=== PATIENT | male | born 1950 | race Caucasian/White ===

== ENCOUNTER 2018-03-30 06:45 | Day surgery (SDC) | payer OTHER ==
[~2018-03-30 06:45] MED LIST: MOTRIN600 MG PO; NOHOMEMEDS; PERCOCET 5/31 TABLET PO
[2018-03-30] MEDS ORDERED: METOPROLOL TART25 MG PO (08:16)
[2018-03-30] MEDS ORDERED: ASPIRIN81 M2 PO (08:17)
== END 2018-03-30 15:10 | disposition home or self-care (01) ==
LOC: CATH 06:45
DX: I25.10 Atherosclerotic heart disease of native coronary artery without angina pectoris (principal); E78.5 Hyperlipidemia, unspecified; K21.9 Gastro-esophageal reflux disease without esophagitis
CPT/HCPCS: C1760; C1769; C1887; C1894; J1644; J2250; J3010; J7040